=== PATIENT | female | born 1970 | race Caucasian/White ===

== ENCOUNTER 2019-11-15 05:31 | Inpatient (IN) | payer BC ==
[~2019-11-15] VITALS: Ht 170.2 cm; Wt 70.6 kg
[~2019-11-15 05:31] MED LIST: ALPRAZALOM; CARI-277; HYDR-2595; IBU800T; PAXIL
[2019-11-15] MEDS ORDERED: SODIUM CHLORIDE 0.9% 1,000 ML IV ONE ×2 (06:15→08:18)
[2019-11-15] MEDS ORDERED: MORPHINE SULFATE 4 MG/ML SYR/VIAL IV ONE (06:15)
[2019-11-15] MEDS ORDERED: ONDANSETRON HCL 4 MG/2 ML VIAL IV ONE (06:15)
[2019-11-15 06:33] LABS: Basophils # (auto) 0 10 ^3/uL (0-0.2); Basophils % (auto) 0.5 % (0.0-2.0); Eosinophils # (auto) 0 10 ^3/uL (0-0.8); Eosinophils % (auto) 0.3 % (0.0-7.0); Hemoglobin 14.5 g/dL (12.2-16.2); Lymphocytes # (auto) 0.9 10 ^3/uL (0.4-5.4); Mean Corpuscular Hemoglobin 30.1 pg (28.0-32.0); Mean Corpuscular Hgb Conc. 33.6 g/dL (32.0-36.0); Mean Corpuscular Volume 89.4 fL (80.0-100.0); Monocytes # (auto) 0.4 10 ^3/uL (0-1.3); Monocytes % (auto) 4.8 % (0.0-12.0); Neutrophils # (auto) 7.3 10 ^3/uL (1.6-8.6); Neutrophils % (auto) 84.4 % (37.0-80.0); Nucleated Red Blood Cells % 0.1 %; Platelet Count (auto) 276 10^3/uL (140-450); Red Blood Cells 4.81 10^6/uL (4.0-5.20); Red Cell Distribution Width 14.3 % (11.8-14.3); White Blood Cell 8.6 10^3/uL (4.4-10.8)
[2019-11-15 06:42] LABS: Urine Bacteria MOD /hpf (None Seen); Urine Blood Negative /uL (Negative); Urine Specific Gravity 1.016 (1.001-1.035); Urine WBC 3 /hpf (0 - 5)
[2019-11-15 06:48] LABS: INR 0.99 (0.9-1.15); Partial Thromboplastin Time 29.4 sec (23.64-32.05)
[2019-11-15 06:54] LABS: Albumin 4.1 g/dL (3.4-5.0); BUN/Creatinine Ratio 28.2; Calcium 9.4 mg/dL (8.5-10.1); Magnesium 2.2 mg/dL (1.6-2.6); Potassium 4.3 mmol/L (3.5-5.1)
[2019-11-15 06:57] LABS: Bilirubin, Total 0.5 mg/dL (0.2-1.0); Total Protein 7.7 g/dL (6.4-8.2)
[2019-11-15] MEDS ORDERED: KETOROLAC TROMETH 15 mg/ml 1ML VL IV ONE (07:45)
[2019-11-15] MEDS ORDERED: SODIUM CHLORIDE 0.9% 500 ML IVB ONE (08:18)
[2019-11-15] MEDS ORDERED: HYDROmorphone HCL 2 MG/ML VL IV ONE (08:30)
[2019-11-15] MEDS ORDERED: GASTROGRAFIN 120 ML SOL ONE (08:33)
[2019-11-15] MEDS: PROMETHAZINE HCL 25 MG/ML 1ML IV PRN ×2 (10:23→21:02)
[2019-11-15] MEDS ORDERED: NITROGLYCERIN 0.4 MG SL TAB SL PRN (15:15)
[2019-11-15] MEDS ORDERED: MORPHINE SULF INJ 2 MG/ML SYRINGE 1ML IV PRN (15:15)
[2019-11-15] MEDS: D5W/SOD CHL 0.45%/KCL 20MEQ 1,000 ML IV SCH ×2 (15:20→23:16)
[2019-11-15 16:30] VITALS: BP 120/69
[2019-11-15] MEDS: ONDANSETRON HCL 4 MG/2 ML VIAL IV PRN (16:54)
[2019-11-15] MEDS: HYDROmorphone HCL 2 MG/ML VL IV PRN ×2 (16:55→20:33)
[2019-11-15 17:00] VITALS: BP 120/69
[2019-11-15] MEDS ORDERED: HYDR-4833 PO (17:44)
[2019-11-15] MEDS: FAMOTIDINE (10MG/ML) 2ML VL IV SCH (21:01)
[2019-11-15] MEDS: metroNIDAZOLE 500MG/100ML 100 ML IV SCH (21:01)
[2019-11-15] MEDS: METOCLOPRAMIDE HCL 5MG/ml INJ 2ml VIAL IV SCH (21:02)
[2019-11-15 22:00] VITALS: BP 115/77
[2019-11-16 05:00] VITALS: BP 119/72
[2019-11-16] MEDS: metroNIDAZOLE 500MG/100ML 100 ML IV SCH ×3 (05:50→21:08)
[2019-11-16] MEDS: METOCLOPRAMIDE HCL 5MG/ml INJ 2ml VIAL IV SCH ×2 (05:51→13:27)
[2019-11-16 06:29] LABS: Basophils # (auto) 0 10 ^3/uL (0-0.2); Basophils % (auto) 0.6 % (0.0-2.0); Eosinophils # (auto) 0.1 10 ^3/uL (0-0.8); Eosinophils % (auto) 1.2 % (0.0-7.0); Hematocrit 39.1 % (36.0-46.0); Hemoglobin 13.2 g/dL (12.2-16.2); Lymphocytes # (auto) 1.3 10 ^3/uL (0.4-5.4); Lymphocytes % (auto) 26.2 % (10.0-50.0); Mean Corpuscular Hemoglobin 30.5 pg (28.0-32.0); Mean Corpuscular Hgb Conc. 33.8 g/dL (32.0-36.0); Monocytes # (auto) 0.4 10 ^3/uL (0-1.3); Monocytes % (auto) 8.9 % (0.0-12.0); Neutrophils % (auto) 63.1 % (37.0-80.0); Platelet Count (auto) 245 10^3/uL (140-450); Red Blood Cells 4.34 10^6/uL (4.0-5.20); Red Cell Distribution Width 13.8 % (11.8-14.3); White Blood Cell 4.8 10^3/uL (4.4-10.8)
[2019-11-16 06:39] LABS: Albumin 3.6 g/dL (3.4-5.0); BUN/Creatinine Ratio 24.3; Potassium 4.1 mmol/L (3.5-5.1)
[2019-11-16 06:41] LABS: Bilirubin, Total 0.5 mg/dL (0.2-1.0); Total Protein 6.9 g/dL (6.4-8.2)
[2019-11-16 09:00] VITALS: BP 107/70
[2019-11-16] MEDS: levoFLOXacin 500MG 100 ML IV SCH (10:11)
[2019-11-16] MEDS: FAMOTIDINE (10MG/ML) 2ML VL IV SCH ×2 (10:11→21:08)
[2019-11-16] MEDS: HYDROmorphone HCL 2 MG/ML VL IV PRN ×4 (10:26→21:44)
[2019-11-16] MEDS: PROMETHAZINE HCL 25 MG/ML 1ML IV PRN ×2 (10:27→21:45)
[2019-11-16 13:00] VITALS: BP 112/64
[2019-11-16] MEDS: D5W/SOD CHL 0.45%/KCL 20MEQ 1,000 ML IV SCH (16:59)
[2019-11-16 17:00] VITALS: BP 115/62
[2019-11-16 22:00] VITALS: BP 100/64
[2019-11-17] MEDS: D5W/SOD CHL 0.45%/KCL 20MEQ 1,000 ML IV SCH ×2 (00:25→13:00)
[2019-11-17 05:00] VITALS: BP 110/65
[2019-11-17] MEDS: HYDROmorphone HCL 2 MG/ML VL IV PRN ×5 (05:11→22:01)
[2019-11-17] MEDS: PROMETHAZINE HCL 25 MG/ML 1ML IV PRN ×4 (05:12→18:55)
[2019-11-17] MEDS: metroNIDAZOLE 500MG/100ML 100 ML IV SCH ×3 (05:12→21:49)
[2019-11-17 06:04] LABS: Potassium 4.6 mmol/L (3.5-5.1)
[2019-11-17 06:10] LABS: BUN/Creatinine Ratio 16.4; Calcium 8.9 mg/dL (8.5-10.1)
[2019-11-17 09:00] VITALS: BP 114/70
[2019-11-17] MEDS: levoFLOXacin 500MG 100 ML IV SCH (10:16)
[2019-11-17] MEDS: FAMOTIDINE (10MG/ML) 2ML VL IV SCH ×2 (10:17→21:49)
[2019-11-17 13:00] VITALS: BP 122/73
[2019-11-17 16:46] VITALS: BP 129/71
[2019-11-17] MEDS: D5W/SOD CHL 0.45% 1,000 ML IV SCH (19:01)
[2019-11-17 22:00] VITALS: BP 136/72
[2019-11-18] MEDS ORDERED: ACETAMINOPHEN 325 MG TAB PO ONE (01:30)
[2019-11-18 05:00] VITALS: BP 123/74
[2019-11-18] MEDS: HYDROmorphone HCL 2 MG/ML VL IV PRN ×3 (05:07→14:06)
[2019-11-18] MEDS: metroNIDAZOLE 500MG/100ML 100 ML IV SCH (05:07)
[2019-11-18] MEDS: D5W/SOD CHL 0.45% 1,000 ML IV SCH (05:07)
[2019-11-18] MEDS: ONDANSETRON HCL 4 MG/2 ML VIAL IV PRN (05:15)
[2019-11-18 09:26] VITALS: BP 113/63
[2019-11-18] MEDS: FAMOTIDINE (10MG/ML) 2ML VL IV SCH (09:30)
[2019-11-18] MEDS: levoFLOXacin 500MG 100 ML IV SCH (09:30)
[2019-11-18 12:59] VITALS: BP 103/68
[2019-11-18 16:54] VITALS: BP 114/69
[2019-11-18 17:41] VITALS: BP 114/69
== END 2019-11-18 20:00 | disposition home or self-care (01) | DRG 389 ==
LOC: ER 05:31 → EDBD 05:31 → OVERFLOW 05:32 → CENTRAL 16:12
PROVIDERS: ADMIT Nurse Practitioner Acute Care; ATTEND Internal Medicine
DX: K56.600 Partial intestinal obstruction, unspecified as to cause (principal); N30.01 Acute cystitis with hematuria; F41.1 Generalized anxiety disorder; M19.90 Unspecified osteoarthritis, unspecified site; F41.9 Anxiety disorder, unspecified; F32.9 Major depressive disorder, single episode, unspecified; M54.5 Low back pain; K31.89 Other diseases of stomach and duodenum; G89.4 Chronic pain syndrome; Z90.49 Acquired absence of other specified parts of digestive tract; Z79.891 Long term (current) use of opiate analgesic; Z87.891 Personal history of nicotine dependence; Z90.710 Acquired absence of both cervix and uterus; Z90.89 Acquired absence of other organs
CPT/HCPCS: 36415; 74018; 74176; 74250; 80048; 80053; 81001; 82150; 83690; 83735; 84702; 85025; 85610; 85730; 93005; 96361; 96374; 96375; G0378; J1956; J2405; J3490

== ENCOUNTER 2022-12-21 15:44 | Inpatient (IN) | payer BC ==
[~2022-12-21] VITALS: Ht 170.2 cm; Wt 106.6 kg
[~2022-12-21 15:44] MED LIST changes: -HYDR-2595; +HYDR-4833 PO
[2022-12-21] MEDS ORDERED: NITROGLYCERIN 0.4 MG SL TAB SL PRN (18:15)
[2022-12-21] MEDS ORDERED: ALBUTEROL SULF 2.5 MG/0.5ML(0.5%) NEB SOLN NEB PRN (18:15)
[2022-12-21] MEDS ORDERED: MORPHINE SULFATE INJ 2 MG/ml SYRG IV PRN (18:15)
[2022-12-21 22:55] VITALS: BP 128/86
[2022-12-21 23:55] VITALS: BP 120/77
[2022-12-22] VITALS (92 sets, daily range): BP systolic 109–152; BP diastolic 78–105
[2022-12-22 04:25] LABS: Basophils # (auto) 0.1 10 ^3/uL (0-0.2); Basophils % (auto) 0.4 % (0.0-2.0); Eosinophils # (auto) 0 10 ^3/uL (0-0.8); Hematocrit 42.9 % (36.0-46.0); Hemoglobin 14.7 g/dL (12.2-16.2); Lymphocytes # (auto) 0.6 10 ^3/uL (0.4-5.4); Lymphocytes % (auto) 4.5 % (10.0-50.0); Mean Corpuscular Hemoglobin 29.2 pg (28.0-32.0); Mean Corpuscular Hgb Conc. 34.2 g/dL (32.0-36.0); Mean Corpuscular Volume 85.4 fL (80.0-100.0); Monocytes # (auto) 0.1 10 ^3/uL (0-1.3); Monocytes % (auto) 0.8 % (0.0-12.0); Neutrophils # (auto) 12.7 10 ^3/uL (1.6-8.6); Neutrophils % (auto) 94.3 % (37.0-80.0); Nucleated Red Blood Cells % 1.3 %; Red Blood Cells 5.02 10^6/uL (4.0-5.20); Red Cell Distribution Width 14.1 % (11.8-14.3); White Blood Cell 13.4 10^3/uL (4.4-10.8)
[2022-12-22 04:29] LABS: BUN/Creatinine Ratio 56.3 (10.0-20.0); Calcium 9.9 mg/dL (8.5-10.1); Potassium 4.6 mmol/L (3.5-5.1)
[2022-12-22] MEDS: FREE WATER GT SCH ×4 (06:00→18:09)
[2022-12-22] MEDS ORDERED: VANCOMYCIN PER PHARMACY 0 MG IV SCH (07:00)
[2022-12-22] MEDS ORDERED: VANCOMYCIN 1GM/250ML 250 ML IV ONE (07:45)
[2022-12-22] MEDS ORDERED: CEFEPIME 2 GM in SODIUM CHL 0.9% 50 ML IV ONE (10:00)
[2022-12-22] MEDS ORDERED: CEFEPIME 2 GM in SODIUM CHL 0.9% 50 ML IV SCH ×2 (10:00→14:00)
[2022-12-22] MEDS: OMEPRAZOLE 20MG/10ML ORAL SUSP GT SCH (10:53)
[2022-12-22] MEDS ORDERED: METOPROLOL TARTRATE 1MG/1ML-5ML VIAL IV PRN (13:00)
[2022-12-22] MEDS: ENOXAPARIN SOD 40 MG/0.4 ML SYRINGE SC SCH (13:18)
[2022-12-22] MEDS: CEFEPIME 2 GM in SODIUM CHL 0.9% 50 ML IV SCH (18:09)
[2022-12-22] MEDS: VANCOMYCIN 1GM/250ML 250 ML IV SCH (22:10)
[2022-12-23] VITALS (44 sets, daily range): BP systolic 111–153; BP diastolic 71–101
[2022-12-23] MEDS: FREE WATER GT SCH ×4 (00:12→17:40)
[2022-12-23] MEDS: CEFEPIME 2 GM in SODIUM CHL 0.9% 50 ML IV SCH ×3 (02:02→17:39)
[2022-12-23 04:41] LABS: Basophils # (auto) 0.2 10 ^3/uL (0-0.2); Basophils % (auto) 1.1 % (0.0-2.0); Eosinophils # (auto) 0.1 10 ^3/uL (0-0.8); Eosinophils % (auto) 0.3 % (0.0-7.0); Hematocrit 41.4 % (36.0-46.0); Hemoglobin 14.5 g/dL (12.2-16.2); Lymphocytes # (auto) 1.8 10 ^3/uL (0.4-5.4); Lymphocytes % (auto) 10.5 % (10.0-50.0); Mean Corpuscular Hemoglobin 29.5 pg (28.0-32.0); Mean Corpuscular Hgb Conc. 34.9 g/dL (32.0-36.0); Mean Corpuscular Volume 84.4 fL (80.0-100.0); Monocytes # (auto) 1.1 10 ^3/uL (0-1.3); Neutrophils # (auto) 14.5 10 ^3/uL (1.6-8.6); Neutrophils % (auto) 82.1 % (37.0-80.0); Nucleated Red Blood Cells % 0.3 %; Red Blood Cells 4.91 10^6/uL (4.0-5.20); White Blood Cell 17.6 10^3/uL (4.4-10.8)
[2022-12-23 05:19] LABS: Calcium 9.8 mg/dL (8.5-10.1); Potassium 3.5 mmol/L (3.5-5.1)
[2022-12-23 05:21] LABS: BUN/Creatinine Ratio 53.7 (10.0-20.0)
[2022-12-23] MEDS: VANCOMYCIN 1GM/250ML 250 ML IV SCH ×3 (05:39→18:50)
[2022-12-23] MEDS: SOD CHL 0.45% 1,000 ML IV SCH ×2 (06:30→16:08)
[2022-12-23] MEDS: ENOXAPARIN SOD 40 MG/0.4 ML SYRINGE SC SCH (09:34)
[2022-12-23] MEDS: OMEPRAZOLE 20MG/10ML ORAL SUSP GT SCH (09:35)
[2022-12-23] MEDS ORDERED: GLYCOPYRROLATE 0.2 MG/ML 1ML VIAL IV PRN ×2 (11:00→14:00)
[2022-12-23] MEDS: ALBUTEROL SULF 2.5 MG/0.5ML(0.5%) NEB SOLN HHN SCH ×4 (11:51→23:41)
[2022-12-23] MEDS: IPRATROPIUM BROM 0.5 MG/2.5ML INH SOL NEB PRN ×4 (11:51→23:42)
[2022-12-23] MEDS: Jevity 1.2 Cal/Fiber 1 Liter GT SCH (13:16)
[2022-12-23] MEDS: ACETYLCYSTEINE 20%(200MG/ML) SOL 4ML IN SCH ×3 (14:00→23:42)
[2022-12-23] MEDS ORDERED: ACETYLCYSTEINE 10 %(100MG/ML) SOL 4ML ONE (15:03)
[2022-12-24] VITALS (24 sets, daily range): BP systolic 111–143; BP diastolic 71–94
[2022-12-24] MEDS: FREE WATER GT SCH ×4 (00:06→18:31)
[2022-12-24] MEDS: SOD CHL 0.45% 1,000 ML IV SCH ×3 (02:13→21:08)
[2022-12-24] MEDS: CEFEPIME 2 GM in SODIUM CHL 0.9% 50 ML IV SCH ×3 (02:13→18:30)
[2022-12-24] MEDS: VANCOMYCIN 1GM/250ML 250 ML IV SCH ×4 (02:13→23:12)
[2022-12-24] MEDS: IPRATROPIUM BROM 0.5 MG/2.5ML INH SOL NEB PRN ×5 (03:30→22:40)
[2022-12-24] MEDS: ACETYLCYSTEINE 20%(200MG/ML) SOL 4ML IN SCH ×6 (03:30→22:40)
[2022-12-24] MEDS: ALBUTEROL SULF 2.5 MG/0.5ML(0.5%) NEB SOLN HHN SCH ×6 (03:30→22:40)
[2022-12-24 04:00] LABS: Basophils # (auto) 0.1 10 ^3/uL (0-0.2); Basophils % (auto) 0.6 % (0.0-2.0); Eosinophils # (auto) 0.2 10 ^3/uL (0-0.8); Eosinophils % (auto) 1.5 % (0.0-7.0); Hematocrit 35.4 % (36.0-46.0); Hemoglobin 12.1 g/dL (12.2-16.2); Lymphocytes # (auto) 1.5 10 ^3/uL (0.4-5.4); Lymphocytes % (auto) 12.2 % (10.0-50.0); Mean Corpuscular Hgb Conc. 34.2 g/dL (32.0-36.0); Mean Corpuscular Volume 84.7 fL (80.0-100.0); Monocytes # (auto) 0.8 10 ^3/uL (0-1.3); Monocytes % (auto) 6.9 % (0.0-12.0); Neutrophils # (auto) 9.7 10 ^3/uL (1.6-8.6); Neutrophils % (auto) 78.8 % (37.0-80.0); Nucleated Red Blood Cells % 0.1 %; Red Blood Cells 4.18 10^6/uL (4.0-5.20); White Blood Cell 12.3 10^3/uL (4.4-10.8)
[2022-12-24 04:04] LABS: Calcium 8.8 mg/dL (8.5-10.1); Potassium 3.6 mmol/L (3.5-5.1)
[2022-12-24 04:07] LABS: BUN/Creatinine Ratio 34.9 (10.0-20.0)
[2022-12-24] MEDS: OMEPRAZOLE 20MG/10ML ORAL SUSP GT SCH (10:34)
[2022-12-24] MEDS: ENOXAPARIN SOD 40 MG/0.4 ML SYRINGE SC SCH (10:35)
[2022-12-24] MEDS: Jevity 1.2 Cal/Fiber 1 Liter GT SCH (21:08)
[2022-12-25] VITALS (22 sets, daily range): BP systolic 117–148; BP diastolic 81–111
[2022-12-25] MEDS: CEFEPIME 2 GM in SODIUM CHL 0.9% 50 ML IV SCH ×4 (02:14→20:05)
[2022-12-25] MEDS: ACETYLCYSTEINE 20%(200MG/ML) SOL 4ML IN SCH ×4 (02:25→22:00)
[2022-12-25] MEDS: IPRATROPIUM BROM 0.5 MG/2.5ML INH SOL NEB PRN ×6 (02:25→22:22)
[2022-12-25] MEDS: ALBUTEROL SULF 2.5 MG/0.5ML(0.5%) NEB SOLN HHN SCH ×6 (02:25→22:22)
[2022-12-25] MEDS: FREE WATER GT SCH ×4 (06:00→18:00)
[2022-12-25] MEDS: VANCOMYCIN 1GM/250ML 250 ML IV SCH ×2 (09:25→17:00)
[2022-12-25] MEDS: OMEPRAZOLE 20MG/10ML ORAL SUSP GT SCH (10:25)
[2022-12-25] MEDS: METOPROLOL TARTRATE 25 MG TAB PO SCH ×2 (10:26→22:05)
[2022-12-25] MEDS: ENOXAPARIN SOD 40 MG/0.4 ML SYRINGE SC SCH (10:27)
[2022-12-25] MEDS: ACETAMINOPHEN 500 MG TAB PO PRN (22:03)
[2022-12-25] MEDS: Jevity 1.2 Cal/Fiber 1 Liter GT SCH (22:07)
[2022-12-26] VITALS (24 sets, daily range): BP systolic 108–142; BP diastolic 77–98
[2022-12-26] MEDS: VANCOMYCIN 1GM/250ML 250 ML IV SCH ×3 (01:30→17:08)
[2022-12-26] MEDS: IPRATROPIUM BROM 0.5 MG/2.5ML INH SOL NEB PRN ×6 (01:52→23:05)
[2022-12-26] MEDS: ALBUTEROL SULF 2.5 MG/0.5ML(0.5%) NEB SOLN HHN SCH ×6 (01:52→23:05)
[2022-12-26] MEDS: CEFEPIME 2 GM in SODIUM CHL 0.9% 50 ML IV SCH ×3 (02:00→18:49)
[2022-12-26 04:49] LABS: Basophils # (auto) 0.1 10 ^3/uL (0-0.2); Basophils % (auto) 0.6 % (0.0-2.0); Eosinophils # (auto) 0.2 10 ^3/uL (0-0.8); Eosinophils % (auto) 1.7 % (0.0-7.0); Hematocrit 38.4 % (36.0-46.0); Hemoglobin 12.8 g/dL (12.2-16.2); Lymphocytes # (auto) 1.2 10 ^3/uL (0.4-5.4); Lymphocytes % (auto) 10.1 % (10.0-50.0); Mean Corpuscular Hemoglobin 29.1 pg (28.0-32.0); Mean Corpuscular Hgb Conc. 33.5 g/dL (32.0-36.0); Mean Corpuscular Volume 86.9 fL (80.0-100.0); Monocytes # (auto) 0.8 10 ^3/uL (0-1.3); Monocytes % (auto) 7.1 % (0.0-12.0); Neutrophils # (auto) 9.3 10 ^3/uL (1.6-8.6); Neutrophils % (auto) 80.5 % (37.0-80.0); Red Blood Cells 4.41 10^6/uL (4.0-5.20); Red Cell Distribution Width 14.1 % (11.8-14.3); White Blood Cell 11.6 10^3/uL (4.4-10.8)
[2022-12-26] MEDS: FREE WATER GT SCH ×4 (06:00→18:49)
[2022-12-26] MEDS: ACETYLCYSTEINE 20%(200MG/ML) SOL 4ML IN SCH ×3 (06:00→22:00)
[2022-12-26 06:45] LABS: BUN/Creatinine Ratio 28.6 (10.0-20.0); Calcium 9.7 mg/dL (8.5-10.1); Potassium 3.6 mmol/L (3.5-5.1)
[2022-12-26] MEDS: OMEPRAZOLE 20MG/10ML ORAL SUSP GT SCH (09:39)
[2022-12-26] MEDS: ENOXAPARIN SOD 40 MG/0.4 ML SYRINGE SC SCH (09:39)
[2022-12-26] MEDS: METOPROLOL TARTRATE 25 MG TAB PO SCH ×2 (14:39→22:03)
[2022-12-27] VITALS (24 sets, daily range): BP systolic 103–145; BP diastolic 72–109
[2022-12-27] MEDS: ALBUTEROL SULF 2.5 MG/0.5ML(0.5%) NEB SOLN HHN SCH ×4 (02:07→18:31)
[2022-12-27] MEDS: IPRATROPIUM BROM 0.5 MG/2.5ML INH SOL NEB PRN ×2 (02:07→06:46)
[2022-12-27] MEDS: VANCOMYCIN 1GM/250ML 250 ML IV SCH (03:22)
[2022-12-27] MEDS: CEFEPIME 2 GM in SODIUM CHL 0.9% 50 ML IV SCH (04:27)
[2022-12-27] MEDS: ACETYLCYSTEINE 20%(200MG/ML) SOL 4ML IN SCH ×3 (06:00→22:00)
[2022-12-27] MEDS: FREE WATER GT SCH ×4 (06:02→18:00)
[2022-12-27] MEDS: METOPROLOL TARTRATE 25 MG TAB PO SCH ×3 (06:10→21:17)
[2022-12-27] MEDS: OMEPRAZOLE 20MG/10ML ORAL SUSP GT SCH (10:09)
[2022-12-27] MEDS: ENOXAPARIN SOD 40 MG/0.4 ML SYRINGE SC SCH (10:10)
[2022-12-27] MEDS: levoFLOXacin 500MG 100 ML IV SCH (10:10)
[2022-12-27] MEDS: IPRATROPIUM BROM 0.5 MG/2.5ML INH SOL NEB SCH ×2 (12:21→18:31)
[2022-12-28] VITALS (21 sets, daily range): BP systolic 106–138; BP diastolic 71–90
[2022-12-28] MEDS: Jevity 1.2 Cal/Fiber 1 Liter GT SCH
[2022-12-28] MEDS: IPRATROPIUM BROM 0.5 MG/2.5ML INH SOL NEB SCH ×4 (00:17→18:23)
[2022-12-28] MEDS: ALBUTEROL SULF 2.5 MG/0.5ML(0.5%) NEB SOLN HHN SCH ×4 (00:17→18:23)
[2022-12-28] MEDS: MORPHINE SULFATE INJ 2 MG/ml SYRG IV PRN ×2 (03:15→10:34)
[2022-12-28] MEDS: ACETYLCYSTEINE 20%(200MG/ML) SOL 4ML IN SCH ×2 (06:00→15:00)
[2022-12-28] MEDS: METOPROLOL TARTRATE 25 MG TAB PO SCH ×3 (06:09→23:04)
[2022-12-28] MEDS: FREE WATER GT SCH ×4 (06:09→18:29)
[2022-12-28] MEDS: levoFLOXacin 500MG 100 ML IV SCH (10:35)
[2022-12-28] MEDS: OMEPRAZOLE 20MG/10ML ORAL SUSP GT SCH (10:36)
[2022-12-28] MEDS: ENOXAPARIN SOD 40 MG/0.4 ML SYRINGE SC SCH (10:36)
[2022-12-29] MEDS: IPRATROPIUM BROM 0.5 MG/2.5ML INH SOL NEB SCH ×4 (01:02→19:20)
[2022-12-29] MEDS: ALBUTEROL SULF 2.5 MG/0.5ML(0.5%) NEB SOLN HHN SCH ×4 (01:03→19:20)
[2022-12-29 05:08] VITALS: BP_SYST 129; BP_SYST 90; BP_DIAS 50; BP_DIAS 83
[2022-12-29 05:11] LABS: Basophils # (auto) 0 10 ^3/uL (0-0.2); Basophils % (auto) 0.5 % (0.0-2.0); Eosinophils # (auto) 0.2 10 ^3/uL (0-0.8); Eosinophils % (auto) 1.7 % (0.0-7.0); Hematocrit 39.5 % (36.0-46.0); Hemoglobin 13.3 g/dL (12.2-16.2); Lymphocytes # (auto) 1.3 10 ^3/uL (0.4-5.4); Lymphocytes % (auto) 13.3 % (10.0-50.0); Mean Corpuscular Hemoglobin 28.9 pg (28.0-32.0); Mean Corpuscular Hgb Conc. 33.6 g/dL (32.0-36.0); Monocytes # (auto) 0.7 10 ^3/uL (0-1.3); Monocytes % (auto) 7.8 % (0.0-12.0); Neutrophils # (auto) 7.4 10 ^3/uL (1.6-8.6); Neutrophils % (auto) 76.7 % (37.0-80.0); Nucleated Red Blood Cells % 0.1 %; Red Blood Cells 4.59 10^6/uL (4.0-5.20); Red Cell Distribution Width 14.7 % (11.8-14.3); White Blood Cell 9.6 10^3/uL (4.4-10.8)
[2022-12-29 05:36] LABS: BUN/Creatinine Ratio 46.9 (10.0-20.0); Calcium 9.8 mg/dL (8.5-10.1)
[2022-12-29] MEDS: METOPROLOL TARTRATE 25 MG TAB PO SCH ×2 (05:37→14:00)
[2022-12-29] MEDS: FREE WATER GT SCH ×4 (05:44→18:19)
[2022-12-29 09:00] VITALS: BP 109/81
[2022-12-29] MEDS: levoFLOXacin 500MG 100 ML IV SCH (10:30)
[2022-12-29] MEDS: ENOXAPARIN SOD 40 MG/0.4 ML SYRINGE SC SCH (10:30)
[2022-12-29] MEDS: OMEPRAZOLE 20MG/10ML ORAL SUSP GT SCH (10:31)
[2022-12-29 13:00] VITALS: BP 110/74
[2022-12-29 16:46] VITALS: BP 116/77
[2022-12-29 22:00] VITALS: BP 129/75
[2022-12-29] MEDS: METOPROLOL TARTRATE 25 MG TAB GT SCH (22:07)
[2022-12-30] VITALS (7 sets, daily range): BP systolic 120–131; BP diastolic 65–90
[2022-12-30] MEDS: FREE WATER GT SCH ×4 (00:07→17:52)
[2022-12-30] MEDS: ALBUTEROL SULF 2.5 MG/0.5ML(0.5%) NEB SOLN HHN SCH ×5 (01:04→23:52)
[2022-12-30] MEDS: IPRATROPIUM BROM 0.5 MG/2.5ML INH SOL NEB SCH ×5 (01:04→23:52)
[2022-12-30] MEDS: METOPROLOL TARTRATE 25 MG TAB GT SCH ×3 (06:29→21:41)
[2022-12-30] MEDS: levoFLOXacin 500MG 100 ML IV SCH (08:22)
[2022-12-30] MEDS: OMEPRAZOLE 20MG/10ML ORAL SUSP GT SCH (08:22)
[2022-12-30] MEDS: ENOXAPARIN SOD 40 MG/0.4 ML SYRINGE SC SCH (08:22)
[2022-12-30] MEDS ORDERED: MORPHINE SULFATE INJ 2 MG/ml SYRG IV PRN (20:00)
[2022-12-30] MEDS: ACETAMINOPHEN 500 MG TAB PO PRN (21:41)
[2022-12-31] VITALS (8 sets, daily range): BP systolic 101–133; BP diastolic 63–81
[2022-12-31] MEDS: FREE WATER GT SCH ×4 (01:00→18:24)
[2022-12-31] MEDS: METOPROLOL TARTRATE 25 MG TAB GT SCH (06:16)
[2022-12-31] MEDS: ALBUTEROL SULF 2.5 MG/0.5ML(0.5%) NEB SOLN HHN SCH ×2 (06:41→12:05)
[2022-12-31] MEDS: IPRATROPIUM BROM 0.5 MG/2.5ML INH SOL NEB SCH ×2 (06:41→12:05)
[2022-12-31] MEDS: OMEPRAZOLE 20MG/10ML ORAL SUSP GT SCH (10:00)
[2022-12-31] MEDS: ENOXAPARIN SOD 40 MG/0.4 ML SYRINGE SC SCH (10:28)
[2022-12-31] MEDS: levoFLOXacin 500MG 100 ML IV SCH (10:28)
[2022-12-31] MEDS ORDERED: METOPROLOL TARTRATE 50 MG TAB GT SCH (14:00)
[2023-01-01 04:28] VITALS: BP 149/92
[2023-01-01] MEDS: FREE WATER GT SCH ×3 (06:43→12:22)
[2023-01-01 08:30] VITALS: BP 113/58
[2023-01-01] MEDS ORDERED: MORPHINE SULFATE INJ 2 MG/ml SYRG IV PRN (11:45)
[2023-01-01 12:30] VITALS: BP 127/87
[2023-01-01 17:04] VITALS: BP 149/86
[2023-01-01 17:10] VITALS: BP 149/86
== END 2023-01-01 17:40 | disposition hospice, home (50) | DRG 871 ==
LOC: ICU WEST 18:08 → TELE-CENTR 12-28 20:46
PROVIDERS: ADMIT Internal Medicine; ATTEND Nurse Practitioner Acute Care
PROC: 4A00X4Z Measurement of Central Nervous Electrical Activity, External Approach (ICD-10-PCS; principal; 2022-12-25)
DX: A41.9 Sepsis, unspecified organism (principal); G93.41 Metabolic encephalopathy; G93.6 Cerebral edema; I46.9 Cardiac arrest, cause unspecified; J18.9 Pneumonia, unspecified organism; J96.01 Acute respiratory failure with hypoxia; G93.1 Anoxic brain damage, not elsewhere classified; E87.1 Hypo-osmolality and hyponatremia; T40.601A Poisoning by unspecified narcotics, accidental (unintentional), initial encounter; G89.4 Chronic pain syndrome; Z66 Do not resuscitate; H70.90 Unspecified mastoiditis, unspecified ear; Z90.710 Acquired absence of both cervix and uterus; Y92.89 Other specified places as the place of occurrence of the external cause; Z79.899 Other long term (current) drug therapy; Z82.61 Family history of arthritis
CPT/HCPCS: 36415; 70551; 71045; 71275; 80048; 80202; 84443; 84702; 85025; 85379; 87040; 87070; 87077; 87081; 87086; 87186; 87205; 93005; 93306; 93970; 94640; 95819; G0378; J1956